=== PATIENT | female | born 1975 | race Caucasian/White ===

== ENCOUNTER → 2016-04-18 | Outpatient (CLI) | payer BC ==
--- NOTE | 2016-04-18 12:01 | US ---
EXAMINATION TYPE: US abdomen complete DATE OF EXAM: 04/18/2016 11:34 AM COMPARISON: CT abdomen and pelvis June 23, 2015. Prior abdominal ultrasound October 28, 2014 CLINICAL HISTORY: pain rt side, history cholecystectomy, appendectomy ,partial hysterectomy years ago , pt has diarrhea also. EXAM MEASUREMENTS: Liver Length: 10.8 cm Gallbladder Wall: removed CBD: 0.1 cm Spleen: 8.1 cm Right Kidney: 10.2 x 4.1 x 4.8 cm Left Kidney: 9.6 x 4.8 x 4.3 cm ANATOMY: TECHNOLOGIST IMPRESSION: Pancreas: wnl Liver: wnl Gallbladder: surgically removed Evidence for sonographic Mercado's sign: N/A CBD: wnl Spleen: wnl Right Kidney: no hydro seen Left Kidney: no hydro seen Upper IVC: wnl Abd Aorta: wnl The visualized liver is homogenous. The intrahepatic portion of the IVC and proximal abdominal aorta are within normal limits. There is no evidence of cholelithiasis. Common bile duct is unremarkable . The visualized portions of the pancreas are homogenous. The spleen is unremarkable. Kidneys are symmetric and free of hydronephrosis. No renal lesions are seen on images saved. IMPRESSION: No significant finding is seen to account for patient's symptoms. Normal Values: Liver Length: < 16cm wnl, 17-18cm upper limits, >18cm enlarged Spleen Length = < 13cm Renal Length = 9 - 12cm GB Wall: < 0.3cm CBD: < 0.6cm or < 1.0cm post cholecystectomy
--- NOTE | 2016-04-18 12:04 | US ---
EXAMINATION TYPE: US pelvic complete DATE OF EXAM: 04/18/2016 11:15 AM COMPARISON: CT abdomen and pelvis June 23, 2015. Pelvic ultrasound October 28, 2014 CLINICAL HISTORY: pain RLQ and pelvic, diarrhea TECHNIQUE: TA pelvic ultrasound Date of LMP: hysterectomy years ago EXAM MEASUREMENTS: Uterus: surgically removed Endometrial Stripe: surgically removed Right Ovary: 3.2 x 3.5 x 2.0 cm Left Ovary: 2.3 x 1.6 x 1.7 cm FINDINGS: TECHNOLOGIST IMPRESSION: 3. Right Ovary: small ov cysts or prominent follicles, 1.6 x 1.2 x 1.7 cm, 2.0 x 1.4 x 1.6 cm, 0.7 x 0.6 x 0.7 cm 4. Left Ovary: WNL Spectral, color and waveform doppler imaging shows good arterial and venous flow within the ovaries ; 5. Bilateral Adnexa: wnl 6. Posterior cul-de-sac: wnl IMPRESSION: No significant finding is seen to account for patient's symptoms. Normal-appearing ovarie s are identified bilaterally. Normal Values: Uterine Length: < 10cm Endometrium: Proliferative (Day 6 ? 14): 4 ? 6mm Secretory (Day 15 ? 28): 7 ? 14mm Post Menopausal (and not symptomatic): up to 8mm Post Menopausal (with vaginal bleeding): upper limits <5mm Post Menopausal with HRT: upper limits 8 - 15mm Post Menopausal with tamoxifen: < 6mm (although 50% of those receiving tamoxifen have been reported t o have thickness >8mm)
== END | disposition home or self-care (01) ==
LOC: RADUSWWP 10:54
PROVIDERS: ATTEND Family Medicine
DX: R10.31 Right lower quadrant pain (principal); Z90.49 Acquired absence of other specified parts of digestive tract
CPT/HCPCS: 76700; 76856

== ENCOUNTER 2018-06-19 19:55 | Observation (INO) | payer BC ==
--- NOTE | 2018-06-19 21:38 | ED ---
General Adult HPI - General Chief complaint: Chest Pain Stated complaint: Chest pain Time Seen by Provider: 06/19/18 21:17 Source: patient, family, RN notes reviewed Mode of arrival: ambulatory - History of Present Illness Initial comments: Chief complaint and history of present illness this is a 42-year-old female here with family. The patient reports she's been having chest discomfort for 2 weeks. She describes the chest discomfort as a pain that goes sometimes her left arm left scapular region. She reports that she had seen her family physician and an EKG showed a right bundle branch block. She had a stress test yesterday at [facility] which we're trying to obtain. Patient reports occasionally deep breathing increases pain. Denies any injuries. De nies any associated sweats or nausea. - Related Data Home Medications Medication Instructions Recorded Confirmed Pedi Multivit No.25/Folic Acid 1 tab PO HS 06/19/18 06/19/18 [Flintstones Multivit Chew Tab] Allergies Allergy/AdvReac Type Severity Reaction Status Date / Time No Known Allergies Allergy Verified 06/19/18 21:56 Review of Systems ROS Statement: Those systems with pertinent positive or pertinent negative responses have been documented in the HPI. Review of systems; no visual acuity changes no head or neck pain. She has left- sided chest discomfort occasionally goes to the left arm and through to the back. Sometimes made worse by deep breathing. Cannot remember any specific injuries that may have caused this. The discomfort but on-again off-again the better part of 1-2 weeks. No GI/ complaints. No neuro deficits. All systems are reviewed. Past medical problems none. Surgeries Lasix eye surgery, appendectomy, cholecystectomy and hysterectomy. The patient's family history significant for grandmother breast cancer. Patient denies ALLERGIES nonsmoker nondrinker. Patient's job has not entail her do heavy lifting. ROS Other: All systems not noted in ROS Statement are negative. Past Medical History Past Medical History: No Reported History History of Any Multi-Drug Resistant Organisms: None Reported Past Surgical History: Appendectomy, Cholecystectomy, Hysterectomy Past Psychological History: No Psychological Hx Reported Smoking Status: Never smoker Past Alcohol Use History: None Reported Past Drug Use History: None Reported General Exam - General Exam Comments Initial Comments: General: The patient is awake and alert, he with complaint of left-sided chest pain the last several hours once it starts. Vital signs temp 97.9 pulse 75 respiratory rate 16 pulse ox on percent room air blood pressure 116/78 Eye: Pupils are equal, round and reactive to light, extra-ocular movements are intact; there is normal conjunctiva bilaterally. No signs of icterus. Ears, nose, mouth and throat: There are moist mucous membranes and no oral lesions. Neck: The neck is supple, there is no tenderness, no anterior cervical lymphadenopathy, thyroid not enlarged. Cardiovascular: There is a regular rate and rhythm. No murmur, rub or gallop is appreciated. Chest pain was not reproducible with palpation over the anterior chest wall. Respiratory: Lungs are clear to auscultation, respirations are non-labored, breath sounds are equal. No wheezes, stridor, rales, or rhonchi. Gastrointestinal: No abdominal pain. Slightly decreased appetite Back: There is no tenderness to palpation in the midline. There is no obvious deformity. No rashes noted. Musculoskeletal: Normal ROM, no tenderness, There is no calf tenderness . Sensation intact. Neurological: CN II-XII intact, There are no obvious motor or sensory deficits. Coordination appears grossly intact. Speech is normal. No neuro deficits Skin: Skin is warm and dry and no rashes or lesions are noted. Psychiatric: Cooperative, appropriate mood & affect, normal judgment. Course Vital Signs 06/19/18 06/19/18 20:26 22:43 Temperature 97.9 F Pulse Rate 75 89 Respiratory 16 16 Rate Blood Pressure 116/78 106/68 O2 Sat by Pulse 100 100 Oximetry EKG Findings - EKG Comments: EKG Findings:: EKG was done and reviewed at 213 showing normal sinus rhythm with an incomplete right bundle branch block. No acute ST elevation no ectopy. Rate 82. I'll is 144 QRS [address] QT [address] Stringer no old EKGs are currently available to compare to. Medical Decision Making - Medical Decision Making Medical decision making; is a 40-year-old female complaining of on again off again chest pain for several days to a week. Patient had a normal stress test yesterday per the report obtained from [facility]. The patient presents today with discomfort to the left chest went toward the left upper arm area him back to the scapula. Occasionally reproducible with deep breathing. White count 9 hemoglobin 12 hematocrit 37. Potassium 3.9, BUN 11 creatinine 0.60 with a GFR greater than 60. Glucose 121. Troponin less than 0.012. D- dimer normal at 0.24 Chest x-ray is done AP and lateral view and reviewed by radiologist his impression is bilateral pulmonary hyperinflation. No focal consolidation. No evidence of pneumothorax. No acute osseous abnormality. Impression; no acute cardiopulmonary process. As read by Dr. ward Patient continues to complain of a symptomatic palpitation. The plan the patie nt be admitted for the evening with cardiology evaluation. - Lab Data Result diagrams: 06/19/18 21:55 06/19/18 21:55 Lab Results 06/19/18 06/19/18 06/19/18 Range/Units 21:55 21:55 21:55 WBC 9.3 (3.8-10.6) k/uL RBC 4.22 (3.80-5.40) m/uL Hgb 12.5 (11.4-16.0) gm/dL Hct 37.7 (34.0-46.0) % MCV 89.2 (80.0-100.0) fL MCH 29.6 (25.0-35.0) pg MCHC 33.2 (31.0-37.0) g/dL RDW 12.9 (11.5-15.5) % Plt Count 279 (150-450) k/uL Neutrophils % 59 % Lymphocytes % 31 % Monocytes % 5 % Eosinophils % 2 % Basophils % 1 % Neutrophils # 5.5 (1.3-7.7) k/uL Lymphocytes # 2.9 (1.0-4.8) k/uL Monocytes # 0.5 (0-1.0) k/uL Eosinophils # 0.1 (0-0.7) k/uL Basophils # 0.1 (0-0.2) k/uL PT (9.0-12.0) sec INR (<1.2) APTT (22.0-30.0) sec D-Dimer (<0.60) mg/L FEU Sodium 140 (137-145) mmol/L Potassium 3.9 (3.5-5.1) mmol/L Chloride 107 (98-107) mmol/L Carbon Dioxide 24 (22-30) mmol/L Anion Gap 9 mmol/L BUN 11 (7-17) mg/dL Creatinine 0.60 (0.52-1.04) mg/dL Est GFR (CKD-EPI)AfAm >90 (>60 ml/min/1.73 sqM) Est GFR (CKD-EPI)NonAf >90 (>60 ml/min/1.73 sqM) Glucose 121 H (74-99) mg/dL Calcium 9.2 (8.4-10.2) mg/dL Magnesium 2.1 (1.6-2.3) mg/dL Total Bilirubin 0.5 (0.2-1.3) mg/dL AST 18 (14-36) U/L ALT 23 (9-52) U/L Alkaline Phosphatase 61 (38-126) U/L CK-MB (CK-2) <0.2 (0.0-2.4) ng/mL Troponin I <0.012 (0.000-0.034) ng/mL Total Protein 6.7 (6.3-8.2) g/dL Albumin 3.9 (3.5-5.0) g/dL 06/19/18 Range/Units 21:55 WBC (3.8-10.6) k/uL RBC (3.80-5.40) m/uL Hgb (11.4-16.0) gm/dL Hct (34.0-46.0) % MCV (80.0-100.0) fL MCH (25.0-35.0) pg MCHC (31.0-37.0) g/dL RDW (11.5-15.5) % Plt Count (150-450) k/uL Neutrophils % % Lymphocytes % % Monocytes % % Eosinophils % % Basophils % % Neutrophils # (1.3-7.7) k/uL Lymphocytes # (1.0-4.8) k/uL Monocytes # (0-1.0) k/uL Eosinophils # (0-0.7) k/uL Basophils # (0-0.2) k/uL PT 10.3 (9.0-12.0) sec INR 1.0 (<1.2) APTT 24.9 (22.0-30.0) sec D-Dimer 0.24 (<0.60) mg/L FEU Sodium (137-145) mmol/L Potassium (3.5-5.1) mmol/L Chloride (98-107) mmol/L Carbon Dioxide (22-30) mmol/L Anion Gap mmol/L BUN (7-17) mg/dL Creatinine (0.52-1.04) mg/dL Est GFR (CKD-EPI)AfAm (>60 ml/min/1.73 sqM) Est GFR (CKD-EPI)NonAf (>60 ml/min/1.73 sqM) Glucose (74-99) mg/dL Calcium (8.4-10.2) mg/dL Magnesium (1.6-2.3) mg/dL Total Bilirubin (0.2-1.3) mg/dL AST (14-36) U/L ALT (9-52) U/L Alkaline Phosphatase (38-126) U/L CK-MB (CK-2) (0.0-2.4) ng/mL Troponin I (0.000-0.034) ng/mL Total Protein (6.3-8.2) g/dL Albumin (3.5-5.0) g/dL Disposition Clinical Impression: Intermittent palpitations, Atypical chest pain Disposition: ADMITTED IP TO THIS HOSP Condition: Fair Is patient prescribed a controlled substance at d/c from ED?: No Referrals: Jania Costello MD [Primary Care Provider] - 1-2 days
[2018-06-19 22:15] LABS: Basophils # (A) 0.1 k/uL (0-0.2); Basophils % (A) 1 %; Eosinophils # (A) 0.1 k/uL (0-0.7); Eosinophils % (A) 2 %; HCT 37.7 % (34.0-46.0); HGB 12.5 gm/dL (11.4-16.0); Lymphocytes # (A) 2.9 k/uL (1.0-4.8); Lymphocytes % (A) 31 %; MCH 29.6 pg (25.0-35.0); MCHC 33.2 g/dL (31.0-37.0); MCV 89.2 fL (80.0-100.0); Mean Platelet Volume 6.3; Monocytes # (A) 0.5 k/uL (0-1.0); Monocytes % (A) 5 %; Neutrophils # (A) 5.5 k/uL (1.3-7.7); Neutrophils % (A) 59 %; Platelet Count 279 k/uL (150-450); RBC 4.22 m/uL (3.80-5.40); RDW 12.9 % (11.5-15.5); WBC 9.3 k/uL (3.8-10.6)
--- NOTE | 2018-06-19 22:22 | XR ---
EXAM: XR Chest, 2 Views CLINICAL HISTORY: Left-sided chest pain TECHNIQUE: Frontal and lateral views of the chest. COMPARISON: No relevant prior studies available. FINDINGS: Lungs: Bilateral pulmonary hyperinflation. No focal consolidation. Pleural space: Unremarkable. No pneumothorax. Heart: Unremarkable. No cardiomegaly. Mediastinum: Unremarkable. Bones/joints: No acute osseous abnormality. IMPRESSION: No acute cardiopulmonary process.
[2018-06-19 22:29] LABS: D-Dimer 0.24 mg/L FEU (<0.60); Partial Thromboplastin Time 24.9 sec (22.0-30.0); Prothrombin Time 10.3 sec (9.0-12.0)
[2018-06-19 22:31] LABS: ALT 23 U/L (9-52); AST 18 U/L (14-36); Albumin 3.9 g/dL (3.5-5.0); Alkaline Phosphatase 61 U/L (38-126); Anion Gap 9 mmol/L; Blood Urea Nitrogen 11 mg/dL (7-17); Calcium 9.2 mg/dL (8.4-10.2); Carbon Dioxide 24 mmol/L (22-30); Chloride 107 mmol/L (98-107); Glucose 121 mg/dL (74-99); Magnesium 2.1 mg/dL (1.6-2.3); Potassium 3.9 mmol/L (3.5-5.1); Sodium 140 mmol/L (137-145); Total Bilirubin 0.5 mg/dL (0.2-1.3); Total Protein 6.7 g/dL (6.3-8.2)
[2018-06-19 23:07] LABS: Creatine Kinase MB <0.2 ng/mL (0.0-2.4); Troponin I <0.012 ng/mL (0.000-0.034)
[2018-06-20] MEDS ORDERED: NALOXONE 0.4 MG/ML 1 ML VIAL IV PRN (00:04)
[2018-06-20] MEDS ORDERED: IBUPROFEN 400 MG TAB PO PRN (00:04)
[2018-06-20] MEDS ORDERED: ZOLPIDEM 5 MG TAB PO PRN (02:08)
[2018-06-20 04:59] LABS: Creatine Kinase MB <0.2 ng/mL (0.0-2.4); Troponin I <0.012 ng/mL (0.000-0.034)
[2018-06-20 08:16] VITALS: BP 94/60; PULSE 88; RESP 16; TEMP 98.1
--- NOTE | 2018-06-20 08:19 | P.CRDCN ---
History of Present Illness Consult date: 06/20/18 Requesting physician: Ludwig Orozco Reason for Consult (text): chest pain Chief complaint: chest pain, palpitations History of present illness: This is a pleasant 42-year-old female patient with no significant past medical history, no history of diabetes, hypertension or hyperlipidemia. She is a nonsmoker and occasional drinker. She does consume significant amounts of diet Pepsi every day. She has a family history of CAD and her father beginning in his 40s who at the age of 67. She has been having complaints of chest discomfort, not related to exertion, usually occurs when she is lying down for the past 2 weeks. She has also been having complaints of palpitations at rest over the last 1-2 years. Last week, she was seen by her primary care physician who ordered a five-day monitor and a stress echo that were done at [facility]. He presented to the emergency department last night due to complaints of chest discomfort at rest that radiated to her left arm and into her back. EKG on admission showed sinus rhythm with an incomplete right bundle-branch block, similar to findings at her primary care physician. Cardiac enzymes have been negative 2, d-dimer is normal. Remainder of her laboratory values are unremarkable except for a glucose of 121. Stress echocardiogram done at [facility] showed exercise duration of 10 minutes for which she was asymptomatic and there were no ECG or echo findings to indicate stress- induced ischemia, estimated ejection fraction of 60-65%. Upon examination, patient is resting comfortably in bed. She does complain that she didn't cannot fall asleep last night due to fluttering in her chest. Telemetry monitoring was reviewed and showed no significant arrhythmia with rare PVCs. She's had no further complaints of chest discomfort and is anxious to be discharged home. Past Medical History Past Medical History: No Reported History History of Any Multi-Drug Resistant Organisms: None Reported Past Surgical History: Appendectomy, Cholecystectomy, Hysterectomy Additional Past Surgical History / Comment(s): RK surg on her eyes Past Anesthesia/Blood Transfusion Reactions: No Reported Reaction Smoking Status: Never smoker - Past Family History Father Family Medical History: AFIB, Diabetes Mellitus, Hypertension Additional Family Medical History / Comment(s): Quad bypass, Parkinsons Mother Family Medical History: No Reported History Medications and Allergies Home Medications Medication Instructions Recorded Confirmed Type Pedi Multivit No.25/Folic Acid 1 tab PO HS 06/19/18 06/20/18 History [Flintstones Multivit Chew Tab] Allergies Allergy/AdvReac Type Severity Reaction Status Date / Time No Known Allergies Allergy Verified 06/20/18 01:34 Physical Exam Vitals: Vital Signs Temp Pulse Pulse Resp BP BP Pulse Ox 06/20/18 03:56 18 06/20/18 01:49 97.8 F 67 18 108/68 99 06/20/18 01:06 89 16 116/83 99 06/19/18 22:43 89 16 106/68 100 06/19/18 20:26 97.9 F 75 16 116/78 100 Intake and Output 06/19/18 06/20/18 06/20/18 22:59 06:59 14:59 Other: # Voids 1 Weight 45.813 kg PHYSICAL EXAMINATION: HEENT: Head is atraumatic, normocephalic. Pupils equal, round. Neck is supple. There is no elevated jugular venous pressure. HEART EXAMINATION: Heart sounds regular, S1 and S2 normal. No murmur or gallop heard. CHEST EXAMINATION: Lungs are clear to auscultation and precussion. No chest wall tenderness is noted on palpation or with deep breathing. ABDOMEN: Soft, nontender. Bowel sounds are heard. No organomegaly noted. EXTREMITIES: 2+ peripheral pulses with no evidence of peripheral edema and no calf tenderness noted. NEUROLOGIC patient is awake, alert and oriented x3. . Results 06/19/18 21:55 06/19/18 21:55 Cardiac Enzymes 06/19/18 06/19/18 06/20/18 Range/Units 21:55 21:55 03:59 AST 18 (14-36) U/L CK-MB (CK-2) <0.2 <0.2 (0.0-2.4) ng/mL Troponin I <0.012 <0.012 (0.000-0.034) ng/mL Coagulation 06/19/18 Range/Units 21:55 PT 10.3 (9.0-12.0) sec APTT 24.9 (22.0-30.0) sec CBC 06/19/18 Range/Units 21:55 WBC 9.3 (3.8-10.6) k/uL RBC 4.22 (3.80-5.40) m/uL Hgb 12.5 (11.4-16.0) gm/dL Hct 37.7 (34.0-46.0) % Plt Count 279 (150-450) k/uL Comprehensive Metabolic Panel 06/19/18 Range/Units 21:55 Sodium 140 (137-145) mmol/L Potassium 3.9 (3.5-5.1) mmol/L Chloride 107 (98-107) mmol/L Carbon Dioxide 24 (22-30) mmol/L BUN 11 (7-17) mg/dL Creatinine 0.60 (0.52-1.04) mg/dL Glucose 121 H (74-99) mg/dL Calcium 9.2 (8.4-10.2) mg/dL AST 18 (14-36) U/L ALT 23 (9-52) U/L Alkaline Phosphatase 61 (38-126) U/L Total Protein 6.7 (6.3-8.2) g/dL Albumin 3.9 (3.5-5.0) g/dL Current Medications Generic Name Dose Route Start Last Admin Trade Name Freq PRN Reason Stop Dose Admin Ibuprofen 400 mg 06/20/18 00:04 Motrin PO Q6HR PRN Mild Pain or Fever > 100.5 Naloxone HCl 0.2 mg 06/20/18 00:04 Narcan IV Q2M PRN Opioid Reversal Zolpidem Tartrate 5 mg 06/20/18 02:08 06/20/18 02:24 Ambien PO 5 mg HS PRN Administration Insomnia Intake and Output 06/19/18 06/20/18 06/20/18 22:59 06:59 14:59 Other: # Voids 1 Weight 45.813 kg 06/19/18 21:55 06/19/18 21:55 EKG Interpretations (text) Sinus rhythm with no evidence of ischemia Assessment and Plan Assessment: #1 symptoms of atypical chest pain with recent negative stress echo #2 symptoms of fluttering and palpitations with evidence of rare PVCs on telemetry, one PVC noted during stress test on 06/18/2018 #3 family history of CAD Plan: From cardiology's perspective, chest pain does not appear to be cardiac in nature. Recent stress echocardiogram showed good exercise tolerance without symptoms and no evidence of ischemia on echo or ECG. There is no evidence of significant arrhythmia. No further cardiac work-up at this time. HISTORIOGRAPHY PROFESSOR note has been reviewed, I agree with a documented findings and plan of care. Patient was seen and examined.
--- NOTE | 2018-06-20 09:06 | CT ---
EXAMINATION TYPE: CT chest wo con DATE OF EXAM: 06/20/2018 COMPARISON: Radiograph 06/19/2018 HISTORY: 42-year-old female community-acquired pneumonia, chest pain TECHNIQUE: Contiguous axial scanning of the chest without IV contrast. Coronal and sagittal reconstru ctions performed. CT DLP: 170.9 mGycm Automated exposure control for dose reduction was used. FINDINGS: Heart normal size without pericardial effusion. Aorta normal caliber with bovine configuration to the aortic arch and additional variant direct takeo ff of the left vertebral artery from the aortic arch. No thoracic lymphadenopathy allowing for noncontrast technique. Mild biapical pleural-parenchymal scarring. No consolidation or pleural effusion. Visualized upper abdomen shows cholecystectomy clips and a incidental dropped surgical clip in the ri t hepatorenal recess. Bones: No osseous destructive process. IMPRESSION: NO ACUTE PULMONARY PROCESS. NO SPECIFIC ABNORMALITY SEEN.
--- NOTE | 2018-06-20 09:24 | HP ---
HISTORY AND PHYSICAL A 42-year-old white female with no past medical history, had flu 2 weeks ago. She developed chest pain shortly after that, more like pressure, worse with some deep breathing sometimes. Strong family history of her father with heart disease in the 40s. The pain is decreased when she takes a deep breath. She recently had a stress test 2 days ago which apparently was normal. She states she had a right bundle branch block on the EKG. So far, cardiac enzymes are normal. D-dimer is normal and no stress- induced ischemia with normal ejection fraction at [facility] within the past week. She had some fluttering in her chest. Thyroid has been ordered. PAST SURGICAL HISTORY: Appendectomy, cholecystectomy, hysterectomy, RK on her eyes. Father diabetes mellitus, hypertension, bypass. Mother negative. MEDICATIONS: Multivitamin. ALLERGIES: Negative. PHYSICAL EXAM: Vitals are stable. CARDIOVASCULAR: S1, S2. LUNGS: Decreased breath sounds, otherwise clear. CHEST: No chest wall tenderness. ABDOMEN: Soft. EXTREMITIES: No cyanosis, clubbing, edema. NEUROLOGIC: Alert and orient x3. CAT scan of the chest is pending. All troponins are negative. Labs are essentially normal. ASSESSMENT: 1. Atypical chest pain. 2. CT of the chest to rule out any pulmonary issues. 3. Negative D-dimer result PE. 4. This chest pain started when she got the flu, possible influenza-type pneumonia although her symptoms are not very suggestive. Wait for Cardiology consultation. Check thyroid, check CT of the chest. Possible discharge this morning. MMODL / IJN: [id number] /
--- NOTE | 2018-06-20 10:22 | P.DS ---
Providers Date of admission: 06/20/18 00:04 Expected date of discharge: 06/20/18 Attending physician: Rogelio Gudino Consults: 06/20/18 00:04 Consult Physician Stat Consulting Provider: [facility] Consult Reason/Comments: Symptomatic palpitations, atypical chest pain Do you want consulting provider notified?: Yes Primary care physician: Jania Costello [place] [facility] Course: Discharge Diagnosis 1. Chest pain. Patient was seen by cardiology recent stress echocardiogram showed good exercise tolerance without symptoms and no evidence of ischemia on her EKG no further workup cardiology. Troponin negative.. Chest x-ray negative. D-dimer 0.24. Chest CT completed showing no acute pulmonary process. No specific abnormality seen. 2. History of cholecystectomy 3. Family history of coronary artery disease and atrial fibrillation Hospital Course This is a 42-year-old patient of Dr. Mcgowan. Patient presented to the hospital with complaints of palpitation. Patient reports that this has been going on for multiple months. Patient recently got a stress test at [facility] that was negative. Troponins negative. Chest x-ray completed showing no acute cardiopulmonary process. Patient denies cough or shortness breath. Chest CT completed showing no acute pulmonary process abnormality seen. Magnesium 2.1. D-dimer 0.4. Patient was evaluated by cardiology services chest pain does not appear to be cardiac in nature. Recent stress echogram showed good exercise tolerance without symptoms and no evidence of tenia on echo or EKG. There is no evidence of significant arrhythmia. No further cardiac workup at this time. Patient expresses that she wants to go home now she has to go to work. Patient wants no further workup. Patient denies chest pain or shortness breath. Patient nausea vomiting or diarrhea. Patient denies urinary burning or frequency I performed an examination of the patient and discussed their management with the Nurse Practitioner. I have reviewed the Nurse Practitioner's notes and agree with the documented findings and plan of care Patient Condition at Discharge: Stable Plan - Discharge Summary New Discharge Prescriptions: Continue Pedi Multivit No.25/Folic Acid [Flintstones Multivit Chew Tab] 1 tab PO HS Discharge Medication List Pedi Multivit No.25/Folic Acid [Flintstones Multivit Chew Tab] 1 tab PO HS 06/19/18 [History] Follow up Appointment(s)/Referral(s): Jania Costello MD [Primary Care Provider] - 1-2 days
--- NOTE | 2018-06-20 10:24 | P.HPIM ---
History of Present Illness H&P Date: 06/20/18 This is a 42-year-old patient of Dr. Mcgowan. Patient presented to the hospital with complaints of palpitation. Patient reports that this has been going on for multiple months. She reports that she has been seen by her PCP. Patient concerned due to him a history of coronary artery disease and atrial fibrillation. Patient denies nicotine dependence. Patient recently got a stress test at [facility] that was negative. Troponins negative. Chest x- ray completed showing no acute cardiopulmonary process. Patient denies cough or shortness breath. Chest CT completed showing no acute pulmonary process abnormality seen. Magnesium 2.1. D-dimer 0.4. Patient was evaluated by cardiology services chest pain does not appear to be cardiac in nature. Recent stress echogram showed good exercise tolerance without symptoms and no evidence of tenia on echo or EKG. There is no evidence of significant arrhythmia. No further cardiac workup at this time. y Review of Systems Please refer to HPI otherwise unremarkable Past Medical History Past Medical History: No Reported History History of Any Multi-Drug Resistant Organisms: None Reported Past Surgical History: Appendectomy, Cholecystectomy, Hysterectomy Additional Past Surgical History / Comment(s): EMRE surg on her eyes Past Anesthesia/Blood Transfusion Reactions: No Reported Reaction Smoking Status: Never smoker - Past Family History Father Family Medical History: AFIB, Diabetes Mellitus, Hypertension Additional Family Medical History / Comment(s): Quad bypass, Parkinsons Mother Family Medical History: No Reported History Medications and Allergies Home Medications Medication Instructions Recorded Confirmed Type Pedi Multivit No.25/Folic Acid 1 tab PO HS 06/19/18 06/20/18 History [Flintstones Multivit Chew Tab] Allergies Allergy/AdvReac Type Severity Reaction Status Date / Time No Known Allergies Allergy Verified 06/20/18 01:34 Physical Exam Vitals: Vital Signs Temp Pulse Pulse Resp BP BP Pulse Ox 06/20/18 08:00 98.1 F 88 16 94/60 98 06/20/18 03:56 18 06/20/18 01:49 97.8 F 67 18 108/68 99 06/20/18 01:06 89 16 116/83 99 06/19/18 22:43 89 16 106/68 100 06/19/18 20:26 97.9 F 75 16 116/78 100 Intake and Output 06/19/18 06/20/18 06/20/18 22:59 06:59 14:59 Other: # Voids 1 Weight 45.813 kg Head normocephalic Neck supple Lungs clear to auscultation bilaterally no wheezing or crackles Heart regular rate and rhythm S1-S2, no rub or gallop Abdomen is soft nontender nondistended positive bowel sounds no hepatosplenomegaly Extremities no edema Neuro alert and orientated to 3 Results CBC & Chem 7: 06/19/18 21:55 06/19/18 21:55 Labs: Abnormal Lab Results - Last 24 Hours (Table) 06/19/18 Range/Units 21:55 Glucose 121 H (74-99) mg/dL Thrombosis Risk Factor Assmnt - Choose All That Apply Each Factor Represents 1 point: Age 41-60 years Thrombosis Risk Factor Assessment Total Risk Factor Score: 1 Thrombosis Risk Factor Assessment Level: Low Risk Assessment and Plan Assessment: 1. Chest pain. Patient was seen by cardiology recent stress echocardiogram showed good exercise tolerance without symptoms and no evidence of ischemia on her EKG no further workup cardiology. Troponin negative.. Chest x-ray negative. D-dimer 0.24. Chest CT completed showing no acute pulmonary process. No specific abnormality seen. 2. History of cholecystectomy 3. Family history of coronary artery disease and atrial fibrillation Time with Patient: Greater than 30 (Greater than 60% of the total time spent in counseling and coordination of care. I performed an examination of the patient and discussed their management with the Nurse Practitioner. I have reviewed the Nurse Practitioner's notes and agree with the documented findings and plan of care)
== END 2018-06-20 10:40 | disposition home or self-care (01) ==
LOC: EC 19:55 → 1SOBS 06-20 00:04
PROVIDERS: ADMIT Internal Medicine; ATTEND Internal Medicine
DX: R07.89 Other chest pain (principal); I45.10 Unspecified right bundle-branch block; I25.10 Atherosclerotic heart disease of native coronary artery without angina pectoris; I48.91 Unspecified atrial fibrillation; R11.2 Nausea with vomiting, unspecified; R19.7 Diarrhea, unspecified; R00.2 Palpitations; Z90.710 Acquired absence of both cervix and uterus; Z90.49 Acquired absence of other specified parts of digestive tract; Z83.3 Family history of diabetes mellitus; Z82.49 Family history of ischemic heart disease and other diseases of the circulatory system; Z82.0 Family history of epilepsy and other diseases of the nervous system
CPT/HCPCS: 99285; 36415; 93005; 85379; 80053; 84443; 82550; 82553 ×2; 83735; 84484 ×2; 85025; 85610; 85730; 71046; 71250; G0378

== ENCOUNTER → 2019-01-24 | Outpatient (CLI) | payer BC ==
--- NOTE | 2019-01-24 14:39 | MM ---
Reason for exam: clinical finding. Last mammogram was performed 3 years ago. History: Family history of breast cancer in maternal grandmother at age 93. Took hormonal contraceptives. Physical Findings: Nurse Summary: 1cm nodule in the left breast at 6 o'clock (nurse ramírez). MG Diagnostic Mammo w CAD MARTHA Bilateral CC and MLO view(s) were taken. Prior study comparison: January 10, 2016, bilateral MG diagnostic mammo w CAD MARTHA. October 28, 2014, bilateral MG screening mammo w CAD. The breast tissue is extremely dense which could obscure a lesion on mammography. There is a stable right lower inner quadrant posterior depth 3mm group of calcifications stable from 2014. No suspicious abnormality. These results were verbally communicated with the patient and result sheet given to the patient on 01/24/19. ASSESSMENT: Incomplete: need additional imaging evaluation, BI-RAD 0 RECOMMENDATION: Ultrasound of the left breast. (palpable)
--- NOTE | 2019-01-24 14:41 | USB ---
Reason for exam: additional evaluation requested from abnormal screening. History: Family history of breast cancer in maternal grandmother at age 93. Took hormonal contraceptives. US Breast Limited LT Left limited breast ultrasound including focal area of concern, retroareolar and axilla demonstrates no cystic or solid lesion seen. Dense tissue throughout. No solid or cystic mass. No sonographic correlate for palpable abnormality. No suspicious finding. These results were verbally communicated with the patient and result sheet given to the patient on 01/24/19. ASSESSMENT: Negative, BI-RAD 1 RECOMMENDATION: Routine screening mammogram of both breasts in 1 year.
== END | disposition home or self-care (01) ==
LOC: RADMAMWWP 13:03
PROVIDERS: ATTEND Family Medicine
DX: N63.20 Unspecified lump in the left breast, unspecified quadrant (principal); N63.10 Unspecified lump in the right breast, unspecified quadrant
CPT/HCPCS: 77066

== ENCOUNTER → 2020-03-31 | Outpatient (CLI) | payer BC ==
--- NOTE | 2020-04-05 09:38 | MM ---
Reason for exam: screening (asymptomatic). Last mammogram was performed 1 year and 2 months ago. History: Family history of breast cancer in maternal grandmother at age 93. Took hormonal contraceptives. Physical Findings: A clinical breast exam by your physician is recommended on an annual basis and results should be correlated with mammographic findings. MG Screening Mammo w CAD Bilateral CC and MLO view(s) were taken. Prior study comparison: January 24, 2019, bilateral MG diagnostic mammo w CAD MARTHA. January 10, 2016, bilateral MG diagnostic mammo w CAD MARTHA. The breast tissue is heterogeneously dense. This may lower the sensitivity of mammography. Stable grouped calcifications posterior inferior right MLO view. No significant changes when compared with prior studies. ASSESSMENT: Negative, BI-RAD 1 RECOMMENDATION: Routine screening mammogram of both breasts in 1 year.
== END | disposition home or self-care (01) ==
LOC: RADMAMWWP 10:59
PROVIDERS: ATTEND Midwife
DX: Z12.31 Encounter for screening mammogram for malignant neoplasm of breast (principal)
CPT/HCPCS: 77067

== ENCOUNTER → 2021-05-10 | Outpatient (CLI) | payer BC ==
--- NOTE | 2021-05-11 12:54 | MM ---
Reason for exam: screening (asymptomatic). Last mammogram was performed 1 year and 1 month ago. History: Family history of breast cancer in maternal grandmother at age 93. Took hormonal contraceptives. Physical Findings: A clinical breast exam by your physician is recommended on an annual basis and results should be correlated with mammographic findings. MG Screening Mammo w CAD Bilateral CC and MLO view(s) were taken. Prior study comparison: March 31, 2020, bilateral MG screening mammo w CAD. January 24, 2019, bilateral MG diagnostic mammo w CAD MARTHA. The breast tissue is heterogeneously dense. This may lower the sensitivity of mammography. Finding: There are stable typically benign round, grouped/clustered calcifications in the lower quadrant, posterior position of the right breast. There is no discrete abnormality. ASSESSMENT: Benign, BI-RAD 2 RECOMMENDATION: Routine screening mammogram of both breasts in 1 year.
== END | disposition home or self-care (01) ==
LOC: RADMAMWWP 16:16
PROVIDERS: ATTEND Obstetrics & Gynecology
DX: Z12.31 Encounter for screening mammogram for malignant neoplasm of breast (principal); Z80.3 Family history of malignant neoplasm of breast
CPT/HCPCS: 77067

== ENCOUNTER → 2023-04-20 | Outpatient (CLI) | payer BC | END | disposition home or self-care (01) | LOC: RADUSWWP 15:22 | PROVIDERS: ATTEND Otolaryngology | DX: Z53.9 Procedure and treatment not carried out, unspecified reason (principal) ==

== ENCOUNTER → 2023-04-20 | Outpatient (CLI) | payer BC ==
[2023-04-21 02:20] LABS: Basophils # (A) 0.09 X 10*3/uL (0.00-0.10); Basophils % (A) 1.3 %; Eosinophils # (A) 0.23 X 10*3/uL (0.04-0.35); Eosinophils % (A) 3.2 %; HGB 13.2 g/dL (12.0-15.0); Lymphocytes # (A) 2.82 X 10*3/uL (0.90-5.00); Lymphocytes % (A) 39.8 %; MCH 30.6 pg (27.0-32.0); MCV 92.6 FL (80.0-97.0); Mean Platelet Volume 10.3 FL (9.5-12.2); Monocytes # (A) 0.64 X 10*3/uL (0.20-1.00); NRBC Per 100 WBC 0 X 10*3/uL (0.00-0.01); Neutrophils # (A) 3.29 X 10*3/uL (1.80-7.70); Neutrophils % (A) 46.6 %; Platelet Count 293 X 10*3/uL (140-440); RBC 4.32 X 10*6/uL (4.10-5.20); RDW 13.1 % (11.5-14.5); WBC 7.08 X 10*3/uL (4.50-10.00)
[2023-04-21 02:40] LABS: Estradiol 26.2 pg/mL
[2023-04-21 02:47] LABS: Follicle Stimulating Hormone 66.9 mIU/mL
[2023-04-21 02:54] LABS: Thyroid Peroxidase Antibodies 13.4 U/mL (0.0-33.0)
[2023-04-21 03:18] LABS: Progesterone 0.3 ng/mL
== END | disposition home or self-care (01) ==
LOC: LABWHC1 15:02
PROVIDERS: ATTEND Obstetrics & Gynecology
DX: R68.82 Decreased libido (principal)
CPT/HCPCS: 36415; 82670; 83001; 84144; 84403; 84443; 85025; 86376

== ENCOUNTER → 2023-04-20 | Outpatient (CLI) | payer BC ==
--- NOTE | 2023-04-21 18:10 | US ---
EXAMINATION TYPE: US thyroid st tissue head/neck DATE OF EXAM: 04/20/2023 COMPARISON: NONE CLINICAL INDICATION: Female, 47 years old with history of R09.89; ?Dr felt lump GLAND SIZE: Right Lobe: 4.4 x 1.2 x 1.6 cm Overall Parenchyma: homogeneous Left Lobe: 4.1 x 1.0 x 1.3 cm Overall Parenchyma: homogeneous Isthmus Thickness: 0.3 cm NODULES RIGHT: # of nodules measured on right: 0 LEFT: # of nodules measured on left: 0 ISTHMUS: # of nodules measured in the isthmus: 0 Bilateral neck scanned, no evidence of lymphadenopathy. IMPRESSION: 1. No suspicious thyroid nodules.
--- NOTE | 2023-04-24 09:30 | MM ---
Reason for Exam: Screening (asymptomatic). Last mammogram was performed 1 year(s) and 11 month(s) ago. Patient History: Menarche at age 12. First Full-Term at age 19. Hysterectomy at age 27. Hormonal Contraceptives, ending at age 27. Maternal grandmother had breast cancer, age 93. Risk Values: Linda 5 year model risk: 0.6%. NCI Lifetime model risk: 6.8%. Prior Study Comparison: 01/24/2019 Bilateral Diagnostic Mammogram, [facility]. 03/31/2020 Bilateral Screening Mammogram, [facility]. 05/10/2021 Bilateral Screening Mammogram, [facility]. Tissue Density: The breast tissue is heterogeneously dense. This may lower the sensitivity of mammography. Findings: Analyzed By CAD. There is no suspicious group of microcalcifications or new suspicious mass. Overall Assessment: Negative, BI-RAD 1 Management: Screening Mammogram of both breasts in [address] [facility] will attempt to contact patient to return for supplemental views and ultrasound if indicated. Patient should continue monthly self-breast exams. A clinical breast exam by your physician is recommended on an annual basis. This exam should not preclude additional follow-up of suspicious palpable abnormalities. Note on Linda scores and lifetime risk: 1. A Linda score greater than 3% is considered moderate risk. If this is the case, consider specialist referral to assess eligibility for a risk reducing agent. 2. If overall lifetime risk for the development of breast cancer is 20% or higher, the patient may qualify for future screening with alternating mammogram and breast MRI. Electronically signed and approved by: Papa Plummer DO
== END | disposition home or self-care (01) ==
LOC: RADMAMWWP 15:25
PROVIDERS: ATTEND Obstetrics & Gynecology
DX: Z12.31 Encounter for screening mammogram for malignant neoplasm of breast (principal); R09.89 Other specified symptoms and signs involving the circulatory and respiratory systems; Z80.3 Family history of malignant neoplasm of breast
CPT/HCPCS: 76536; 77067

== ENCOUNTER → 2023-05-31 | Outpatient (CLI) | payer BC ==
[2023-06-01 06:11] LABS: Alternaria alternata IgE 1.86 kU/L; Aspergillus fumagatus IgE <0.10 kU/L; Birch IgE <0.10 kU/L; Cat Epith & Dander IgE <0.10 kU/L; Cladosporian herbarum IgE <0.10 kU/L; Clam IgE <0.10 kU/L; Codfish IgE <0.10 kU/L; Dermato. farinae IgE <0.10 kU/L; Dog Dander IgE <0.10 kU/L; Egg White IgE <0.10 kU/L; Elm IgE <0.10 kU/L; Oak IgE <0.10 kU/L; Peanut IgE <0.10 kU/L; Ragweed,Common IgE <0.10 kU/L; Scallop IgE <0.10 kU/L; Shrimp IgE <0.10 kU/L; Soybean IgE <0.10 kU/L; Walnut IgE (Food) <0.10 kU/L
[2023-06-01 13:42] LABS: Cockroach IgE <0.10 kU/L; Maple (Box Elder) IgE <0.10 kU/L
[2023-06-01 14:41] LABS: Bermuda Grass IgE <0.10 kU/L (<0.10); Meadow Fescue IgE <0.10 kU/L (<0.10); Meadow Fescue IgE Class CLASS 0; Pecan IgE <0.10 kU/L (<0.10); Pecan IgE Class CLASS 0
[2023-06-01 14:42] LABS: Cottonwood IgE <0.10 kU/L (<0.10); Meadow Grs (KY blue) IgE <0.10 kU/L (<0.10); Meadow Grs (KY blue) IgE Class CLASS 0; Penicillium notatum IgE Class CLASS 0; Sycamore(Mpl.Lf) IgE <0.10 kU/L (<0.10); Sycamore(Mpl.Lf) IgE Class CLASS 0; Timothy Grass IgE <0.10 kU/L (<0.10); Timothy Grass IgE Class CLASS 0; Willow Tree IgE <0.10 kU/L (<0.10); Willow Tree IgE Class CLASS 0
[2023-06-01 14:43] LABS: Beech IgE <0.10 kU/L (<0.10); Beech IgE Class CLASS 0; English Plantain IgE Class CLASS 0; Goldenrod IgE <0.10 kU/L (<0.10); Goldenrod IgE Class CLASS 0; Lamb's Quarter IgE <0.10 kU/L (<0.10); Lamb's Quarter IgE Class CLASS 0; Ragweed, Giant IgE <0.10 kU/L (<0.10); Ragweed, Giant IgE Class CLASS 0; Sheep Sorrel IgE <0.10 kU/L (<0.10); Sheep Sorrel IgE Class CLASS 0
== END | disposition home or self-care (01) ==
LOC: LABWHC1 16:31
PROVIDERS: ATTEND Otolaryngology
DX: J30.89 Other allergic rhinitis (principal)
CPT/HCPCS: 36415; 82785; 86001; 86003